=== PATIENT | female | born 1940 | race Two or more races ===

== ENCOUNTER 2017-12-08 07:00 | Day surgery (SDC) | payer OTHER ==
[~2017-12-08] VITALS: Ht 154.9 cm; Wt 71.7 kg
[~2017-12-08 07:00] MED LIST: DICLOFENAC POTA50 MG PO; GABAPENTIN300 MG PO; GLIPIZIDE5 MG PO; LOSARTAN POTASS25 MG PO; SIMVASTATIN40 MG PO
== END 2017-12-09 15:16 | disposition home or self-care (01) ==
LOC: CIR.AMB 07:00 → SURG 12-09 06:47 → O/R 12-09 06:47 → SURG 12-09 07:00 → EDSTATUS 12-09 08:15 → CIR.AMB 12-09 08:15 → SURH 12-09 13:32 → O/R 12-09 13:32 → CIR.AMB 12-09 15:16 → SURH 12-10 17:57 → O/R 12-10 17:57
DX: C7A.026 Malignant carcinoid tumor of the rectum (principal); I10 Essential (primary) hypertension

== ENCOUNTER 2020-09-10 06:29 | Day surgery (SDC) | payer OTHER ==
[~2020-09-10 06:29] MED LIST changes: +VOLTAREN100 GM PO; +ZESTRIL5 MG PO
== END 2020-09-10 10:05 | disposition home or self-care (01) ==
LOC: AMB-ENDOS 06:29
PROVIDERS: ATTEND Colon & Rectal Surgery
DX: K62.89 Other specified diseases of anus and rectum (principal); K64.8 Other hemorrhoids; Z20.822 Contact with and (suspected) exposure to COVID-19; Z12.11 Encounter for screening for malignant neoplasm of colon

== ENCOUNTER 2020-09-15 05:50 | Day surgery (SDC) | payer OTHER | END 2020-09-15 12:25 | disposition home or self-care (01) | LOC: CIR.AMB 05:50 | PROVIDERS: ATTEND Colon & Rectal Surgery | DX: R15.9 Full incontinence of feces (principal); Z20.822 Contact with and (suspected) exposure to COVID-19 | CPT/HCPCS: 64581; C1778 ==

== ENCOUNTER 2020-09-29 05:30 | Day surgery (SDC) | payer OTHER | END 2020-09-29 11:00 | disposition home or self-care (01) | LOC: CIR.AMB 05:30 | PROVIDERS: ATTEND Colon & Rectal Surgery | DX: R15.9 Full incontinence of feces (principal); Z20.822 Contact with and (suspected) exposure to COVID-19 | CPT/HCPCS: 64590; 95971; L8679 ==

== ENCOUNTER 2020-12-23 10:15 | Inpatient (IN) | payer OTHER ==
[~2020-12-23] VITALS: Ht 162.6 cm; Wt 62.1 kg
== END 2021-01-17 16:54 | disposition home or self-care (01) | DRG 376 ==
LOC: SURH 01-16 05:48 → O/R 01-16 05:48 → SURH 01-16 07:00 → O/R 01-16 16:45 → SURH 01-16 16:47
PROVIDERS: ADMIT Colon & Rectal Surgery; ATTEND Colon & Rectal Surgery
PROC: 0DJD8ZZ Inspection of Lower Intestinal Tract, Via Natural or Artificial Opening Endoscopic (ICD-10-PCS; 2021-01-16)
PROC: 0DBP8ZZ Excision of Rectum, Via Natural or Artificial Opening Endoscopic (ICD-10-PCS; principal; 2021-01-16 07:00)
DX: C20 Malignant neoplasm of rectum (principal); K62.1 Rectal polyp; D3A.026 Benign carcinoid tumor of the rectum; I10 Essential (primary) hypertension; R15.9 Full incontinence of feces; K57.30 Diverticulosis of large intestine without perforation or abscess without bleeding

== ENCOUNTER 2021-04-06 10:30 | Inpatient (IN) | payer OTHER ==
[~2021-04-06] VITALS: Ht 157.5 cm; Wt 62.1 kg
[2021-04-06] MEDS ORDERED: GABAPENTIN300 M2 PO (14:05)
[2021-04-06] MEDS ORDERED: COZAAR50 MG PO (14:05)
[2021-04-27] MEDS ORDERED: DOXAZOSIN MESYLA4 MG (13:02)
[2021-04-27] MEDS ORDERED: HYDROCHLOROTHIA25 MG (13:02)
[2021-04-27] MEDS ORDERED: DICLOFENAC SODI75 MG (13:02)
[2021-04-27] MEDS ORDERED: LISINOPRIL40 MG (13:02)
[2021-04-27] MEDS ORDERED: CLOTRIMAZOLE-BE15 G1 (13:02)
== END 2021-04-28 12:09 | disposition home or self-care (01) | DRG 349 ==
LOC: SURG 04-10 10:00 → O/R 04-27 06:48 → SURG 04-27 10:30 → SURH 04-27 18:42
PROVIDERS: ADMIT Colon & Rectal Surgery; ATTEND Colon & Rectal Surgery
PROC: 3E0T3BZ Introduction of Anesthetic Agent into Peripheral Nerves and Plexi, Percutaneous Approach (ICD-10-PCS; 2021-04-27)
PROC: 0DJD8ZZ Inspection of Lower Intestinal Tract, Via Natural or Artificial Opening Endoscopic (ICD-10-PCS; 2021-04-27)
PROC: 0DBQ7ZZ Excision of Anus, Via Natural or Artificial Opening (ICD-10-PCS; principal; 2021-04-27 15:30)
DX: D12.8 Benign neoplasm of rectum (principal); Z20.822 Contact with and (suspected) exposure to COVID-19

== ENCOUNTER → 2021-04-27 06:28 | Outpatient (CLI) | payer OTHER ==
[~2021-04-27 06:28] MED LIST changes: +CLOTRIMAZOLE-BE15 G1; +COZAAR50 MG PO; +DICLOFENAC SODI75 MG; +DOXAZOSIN MESYLA4 MG; +GABAPENTIN300 M2 PO; +HYDROCHLOROTHIA25 MG; +LISINOPRIL40 MG
== END | disposition home or self-care (01) ==
LOC: LAB 06:28
PROVIDERS: ATTEND Colon & Rectal Surgery
DX: Z11.59 Encounter for screening for other viral diseases (principal); Z20.828 Contact with and (suspected) exposure to other viral communicable diseases; D68.9 Coagulation defect, unspecified